=== PATIENT | male | born 1980 ===

== ENCOUNTER 2019-10-13 11:12 | Outpatient (CLI) | payer BC ==
[2019-10-13 13:03] LABS: Basophils % (Auto) 0.4 % (0.0-1.8); Eosinophils # (Auto) 0.1 K/mm3 (0.0-0.4); Eosinophils % (Auto) 1.3 % (0.0-4.3); Hematocrit 39.3 % (35.5-45.6); Hemoglobin 12.8 gm/dl (11.8-15.2); Lymphocytes # (Auto) 1.8 K/mm3 (1.2-5.4); Lymphocytes % (Auto) 40.4 % (13.4-35.0); Mean Corpuscular HGB Conc 33 % (32-34); Mean Corpuscular Volume 84 fl (84-94); Monocytes # (Auto) 0.5 K/mm3 (0.0-0.8); Monocytes % (Auto) 11.3 % (0.0-7.3); Platelet Count 288 K/mm3 (140-440); Red Cell Distribution Width 13.8 % (13.2-15.2)
[2019-10-13 13:38] LABS: Alanine Aminotransferase 12 units/L (7-56); Albumin 4.5 g/dL (3.9-5); BUN/Creatinine Ratio 13; Blood Urea Nitrogen 9 mg/dL (9-20); Calcium 10.4 mg/dL (8.4-10.2); Chol/HDL Ratio 1.87 %; HDL Cholesterol 82 mg/dL (40-59); Hemolysis Index 2; LDL Cholesterol,Direct 71 mg/dL (50-130)
[2019-10-17 15:19] LABS: Vitamin D, 25-OH, D2 <4 ng/mL
== END 2019-10-13 11:13 | disposition home or self-care (01) ==
LOC: LAB 11:12
PROVIDERS: ATTEND Internal Medicine
DX: Z00.00 Encounter for general adult medical examination without abnormal findings (principal)
CPT/HCPCS: 36415; 80053; 80061; 82306; 82607; 83036; 84153; 84443; 85025